=== PATIENT | female | born 1980 | race Caucasian/White ===

== ENCOUNTER 2021-05-25 22:40 | Emergency (ER) | payer MEDICARE, MEDICAID ==
[~2021-05-25] VITALS: Ht 172.7 cm; Wt 81.7 kg
[2021-05-25] MEDS ORDERED: BUSPAR (22:55)
[2021-05-25] MEDS ORDERED: SYNTHROID (22:55)
[2021-05-25] MEDS ORDERED: ESTROGEN (22:56)
[2021-05-25] MEDS ORDERED: XYZAL (22:56)
[2021-05-25 23:53] LABS: URINE BILIRUBIN NEGATIVE (Negative); URINE BLOOD NEGATIVE (Negative); URINE CLARITY CLEAR; URINE COLOR STRAW; URINE GLUCOSE-RANDOM NEGATIVE (Negative); URINE KETONES NEGATIVE (Negative); URINE LEUKOCYTES-REFLEX NEGATIVE (Negative); URINE NITRITE-REFLEX NEGATIVE (Negative); URINE PROTEIN NEGATIVE (Negative); URINE UROBILINOGEN 0.2 E.U./dl (0.2-1.0)
[2021-05-26 01:51] LABS: HEMATOCRIT 41.3 % (37.0-47.0); HEMOGLOBIN 14.3 gm/dL (12.0-15.0); MCH 29.5 pg (26.0-34.0); MCHC 34.6 g/dL (28.0-37.0); MCV 85.2 fL (80.0-100.0); RBC 4.85 mil/uL (4.20-5.00); RDW-CV 13.7 % (10.5-14.5)
[2021-05-26 02:01] LABS: CALCIUM 9.1 mg/dL (8.5-10.1); CREATININE 0.8 mg/dL (0.6-1.3); POTASSIUM 3.5 mmol/L (3.5-5.1)
[2021-05-26 02:06] LABS: ALBUMIN 4.1 g/dL (3.4-5.0); TOTAL BILIRUBIN 0.5 mg/dL (<0.1-1.0)
[2021-05-26 03:49] VITALS: BP 134/84
== END 2021-05-26 03:54 | disposition home or self-care (01) ==
LOC: M.ERS 22:40
PROVIDERS: Personal Emergency Response Attendant
DX: K58.9 Irritable bowel syndrome, unspecified (principal); R07.81 Pleurodynia; E03.9 Hypothyroidism, unspecified; F41.9 Anxiety disorder, unspecified; F32.9 Major depressive disorder, single episode, unspecified; I10 Essential (primary) hypertension; F17.210 Nicotine dependence, cigarettes, uncomplicated; Z79.899 Other long term (current) drug therapy; Z88.8 Allergy status to other drugs, medicaments and biological substances; Z90.711 Acquired absence of uterus with remaining cervical stump; Z87.442 Personal history of urinary calculi